=== PATIENT | female | born 1950 | race Caucasian/White ===

== ENCOUNTER 2016-11-15 09:21 | Outpatient (CLI) | payer OTHER ==
[2016-11-15 10:48] LABS: ALT (SGPT) 8 U/L (0-55); AST (SGOT) 10 U/L (5-34); Albumin 3.9 g/dL (3.4-4.8); Alkaline Phosphatase 92 U/L (40-150); Anion Gap 20 mmol/L (10-20); BUN (Urea Nitrogen) 14 mg/dL (9.8-20.1); Bilirubin, Total 0.5 mg/dL (0.2-1.2); Calc. Creatinine Clearance 0 mL/min (70-130); Calcium 9.5 mg/dL (7.8-10.44); Carbon Dioxide 23 mmol/L (23-31); Chloride 102 mmol/L (98-107); Estimated GFR-MDRD 73; Globulin 2.9 g/dL (2.4-3.5); Glucose 91 mg/dL (80-115); Potassium 4.7 mmol/L (3.5-5.1); Protein, Total 6.8 g/dL (5.8-8.1); Sodium 140 mmol/L (136-145)
[2016-11-15 17:13] LABS: Valproic Acid (Depakene) 70.2 ug/mL (50.0-100.0)
== END 2016-11-15 09:22 | disposition home or self-care (01) ==
LOC: MADLABBHPM 09:21
PROVIDERS: ATTEND Psychiatry & Neurology Psychiatry
DX: E03.9 Hypothyroidism, unspecified (principal); F31.9 Bipolar disorder, unspecified; Z79.899 Other long term (current) drug therapy
CPT/HCPCS: 36415; 80053; 80164; 84443

== ENCOUNTER 2017-02-28 10:14 | Emergency (ER) | payer MEDICARE, OTHER | END 2017-02-28 11:27 | disposition home or self-care (01) | LOC: MADERS 10:14 | DX: T63.481A Toxic effect of venom of other arthropod, accidental (unintentional), initial encounter (principal); L29.9 Pruritus, unspecified; K21.9 Gastro-esophageal reflux disease without esophagitis; J44.9 Chronic obstructive pulmonary disease, unspecified; F31.9 Bipolar disorder, unspecified; M81.0 Age-related osteoporosis without current pathological fracture; F17.210 Nicotine dependence, cigarettes, uncomplicated; Z79.82 Long term (current) use of aspirin; Z79.899 Other long term (current) drug therapy | CPT/HCPCS: 96372; J1040 ==

== ENCOUNTER 2017-04-07 09:17 | Outpatient (CLI) | payer MEDICARE, OTHER ==
[2017-04-07 09:58] LABS: ALT (SGPT) 9 U/L (8-55); AST (SGOT) 14 U/L (5-34); Albumin 3.7 g/dL (3.4-4.8); Alkaline Phosphatase 86 U/L (40-150); Anion Gap 12 mmol/L (10-20); BUN (Urea Nitrogen) 13 mg/dL (9.8-20.1); Bilirubin, Total 0.5 mg/dL (0.2-1.2); Calc. Creatinine Clearance 0 mL/min (70-130); Calcium 9.2 mg/dL (7.8-10.44); Carbon Dioxide 25 mmol/L (23-31); Chloride 104 mmol/L (98-107); Estimated GFR-MDRD 79; Globulin 3.3 g/dL (2.4-3.5); Glucose 93 mg/dL (80-115); Potassium 4.4 mmol/L (3.5-5.1); Sodium 137 mmol/L (136-145)
== END 2017-04-07 09:18 | disposition home or self-care (01) ==
LOC: MADLABBHPM 09:17
PROVIDERS: ATTEND Family Medicine
DX: E03.9 Hypothyroidism, unspecified (principal); F31.9 Bipolar disorder, unspecified
CPT/HCPCS: 36415; 80053; 80164; 84443

== ENCOUNTER 2017-06-15 12:32 | Outpatient (CLI) | payer MEDICARE, MEDICAID ==
--- NOTE | 2017-06-15 15:08 | RAD ---
CHEST TWO VIEWS: History: Lung cancer. Comparison: 11-04-13 FINDINGS: Cardiac silhouette and pulmonary vasculature are unremarkable. Mediastinum is midline. Lungs are hyp erinflated. There is no confluent airspace consolidation, pneumothorax, or pleural fluid evident. IMPRESSION: COPD. POS: [facility]
== END 2017-06-15 12:33 | disposition home or self-care (01) ==
LOC: MADRAD 12:32
PROVIDERS: ATTEND Internal Medicine Medical Oncology
DX: Z51.11 Encounter for antineoplastic chemotherapy (principal); C39.9 Malignant neoplasm of lower respiratory tract, part unspecified; C34.90 Malignant neoplasm of unspecified part of unspecified bronchus or lung; R11.2 Nausea with vomiting, unspecified
CPT/HCPCS: 71020

== ENCOUNTER 2017-06-16 11:31 | Emergency (ER) | payer MEDICARE, OTHER ==
[~2017-06-16 11:31] MED LIST: Nitroglycerin 0.4 MG TAB 1 EACH ONE; Sodium Chloride 0.9% 1,000 ML BAG ONE
[2017-06-16] MEDS ORDERED: Aspirin 325 MG TAB ONE (11:40)
[2017-06-16] MEDS ORDERED: Ondansetron HCl/PF 4 MG/2 ML Vial ONE (11:40)
[2017-06-16] MEDS ORDERED: Nitroglycerin 0.4 MG TAB 1 EACH ONE (11:41)
[2017-06-16 11:53] LABS: #Basophils 0.1 thou/uL (0.0-0.2); #Eosinphils 0.2 thou/uL (0.0-0.7); #Lymphocytes 4.9 thou/uL (1.20-3.40); #Monocytes 0.9 thou/uL (0.11-0.59); #Neutrophils 4.3 thou/uL (1.40-6.50); %Basophils 1.4 % (0.0-1.0); %Eosinophils 1.8 % (0.0-10.0); %Lymphocytes 47.2 % (21.0-51.0); %Monocytes 8.9 % (0.0-10.0); %Neutrophils 40.8 % (42.0-75.0); Mean Corpuscular HGB CONC 34.1 g/dL (32.0-36.0); Mean Corpuscular Hemoglobin 33.1 pg (27.0-31.0); Mean Corpuscular Volume 96.9 fl (81.0-99.0); Mean Platelet Volume 7.2 fL (7.4-10.4); Platelet Count 241 thou/uL (130-400); Red Blood Cell (RBC) Count 3.93 mill/uL (4.20-5.40); White Blood Cell (WBC) Count 10.4 thou/uL (4.8-10.8)
[2017-06-16 11:56] LABS: PTT 24.6 SEC (22.9-36.1); Prothrombin Time 13.1 SEC (12.0-14.7)
--- NOTE | 2017-06-16 11:56 | RAD ---
CHEST ONE VIEW HISTORY: Chest pain. COMPARISON: 01/04/2016 FINDINGS: Cardiac silhouette is magnified by projection. Pulmonary vasculature is unremarkable. Mediastinum is midline. There is no confluent air space consolidation or evidence of pneumothorax. Defibrillat or patch projects over the right upper chest. assistant infant toddler teacher leads overlie the chest. IMPRESSION: No active cardiopulmonary abnormalities are demonstrated. POS: [facility]
[2017-06-16 12:08] LABS: ALT (SGPT) 16 U/L (8-55); AST (SGOT) 15 U/L (5-34); Alkaline Phosphatase 102 U/L (40-150); Anion Gap 17 mmol/L (10-20); BUN (Urea Nitrogen) 13 mg/dL (9.8-20.1); Bilirubin, Total 0.5 mg/dL (0.2-1.2); Calc. Creatinine Clearance 0 mL/min (70-130); Calcium 9.4 mg/dL (7.8-10.44); Carbon Dioxide 19 mmol/L (23-31); Chloride 105 mmol/L (98-107); Estimated GFR-MDRD 76; Globulin 3.2 g/dL (2.4-3.5); Glucose 128 mg/dL (80-115); Potassium 3.6 mmol/L (3.5-5.1); Protein, Total 7.2 g/dL (6.0-8.3); Sodium 137 mmol/L (136-145)
[2017-06-16 12:09] LABS: CKMB 1.1 ng/mL (0-6.6); Troponin I Less than 0.010 ng/mL (< 0.028)
[2017-06-16] MEDS ORDERED: Morphine Sulfate 2 MG/ML SYRINGE ONE (12:10)
== END 2017-06-16 12:28 | disposition short-term general hospital (02) ==
LOC: MADERS 11:31
DX: I21.19 ST elevation (STEMI) myocardial infarction involving other coronary artery of inferior wall (principal); K21.9 Gastro-esophageal reflux disease without esophagitis; J44.9 Chronic obstructive pulmonary disease, unspecified; M81.0 Age-related osteoporosis without current pathological fracture; F31.9 Bipolar disorder, unspecified; F17.210 Nicotine dependence, cigarettes, uncomplicated; Z79.899 Other long term (current) drug therapy
CPT/HCPCS: 71010; 80053; 82553; 84484; 85025; 85610; 85730; 96374; 96375; J2270; J2405; J7050

== ENCOUNTER 2017-07-19 08:41 | Outpatient (CLI) | payer MEDICARE, MEDICAID ==
[2017-07-19 09:55] LABS: Anion Gap 10 mmol/L (10-20); BUN (Urea Nitrogen) 13 mg/dL (9.8-20.1); Calc. Creatinine Clearance 0 mL/min (70-130); Calcium 8.9 mg/dL (7.8-10.44); Carbon Dioxide 30 mmol/L (23-31); Chloride 100 mmol/L (98-107); Estimated GFR-MDRD 74; Glucose 87 mg/dL (80-115); Potassium 4.6 mmol/L (3.5-5.1); Sodium 135 mmol/L (136-145)
== END 2017-07-19 08:42 | disposition home or self-care (01) ==
LOC: MADLAB 08:41
PROVIDERS: ATTEND Internal Medicine Cardiovascular Disease
DX: I71.4 Abdominal aortic aneurysm, without rupture (principal); I10 Essential (primary) hypertension
CPT/HCPCS: 36415; 80048

== ENCOUNTER 2018-01-23 10:35 | Outpatient (CLI) | payer MEDICARE, OTHER | END 2018-01-23 10:36 | disposition home or self-care (01) | LOC: MADLAB 10:35 | PROVIDERS: ATTEND Radiology Diagnostic Radiology | DX: Z01.812 Encounter for preprocedural laboratory examination (principal) | CPT/HCPCS: 36415; 82565 ==

== ENCOUNTER 2018-03-23 12:26 | Emergency (ER) | payer MEDICARE, MEDICAID ==
[2018-03-23 13:00] LABS: #Basophils 0.1 thou/uL (0.0-0.2); #Eosinphils 0.1 thou/uL (0.0-0.7); #Lymphocytes 2.5 thou/uL (1.20-3.40); #Monocytes 0.6 thou/uL (0.11-0.59); #Neutrophils 3.6 thou/uL (1.40-6.50); %Lymphocytes 36.4 % (21.0-51.0); %Monocytes 9.1 % (0.0-10.0); %Neutrophils 52.5 % (42.0-75.0); Mean Corpuscular HGB CONC 33.2 g/dL (32.0-36.0); Mean Corpuscular Hemoglobin 31.5 pg (27.0-31.0); Mean Corpuscular Volume 94.7 fl (81.0-99.0); Mean Platelet Volume 7.5 fL (7.4-10.4); Platelet Count 212 thou/uL (130-400); RBC Distribution Width 12.3 % (11.5-14.5); White Blood Cell (WBC) Count 6.8 thou/uL (4.8-10.8)
--- NOTE | 2018-03-23 13:13 | CT ---
CT HEAD WITHOUT CONTRAST: Technique: Multiple axial tomograms were obtained through the head without IV enhancement. Indications: Left sided weakness. Stroke protocol. Comparison: Head CT 06-16-17 FINDINGS/IMPRESSION: Mild cortical volume loss. Moderate chronic ischemic white matter changes again noted. No hemorrhage or mass. No evidence of acute cortical infarct. Findings were relayed to Dr. Light by phone at 12:50 p.m. POS: [facility]
[2018-03-23 13:18] LABS: ALT (SGPT) 9 U/L (8-55); AST (SGOT) 11 U/L (5-34); Albumin 3.9 g/dL (3.4-4.8); Alkaline Phosphatase 75 U/L (40-150); Anion Gap 14 mmol/L (10-20); BUN (Urea Nitrogen) 11 mg/dL (9.8-20.1); Bilirubin, Total 0.4 mg/dL (0.2-1.2); CK (CPK) 140 U/L (29-168); Calc. Creatinine Clearance 0 mL/min (70-130); Calcium 9.3 mg/dL (7.8-10.44); Carbon Dioxide 23 mmol/L (23-31); Chloride 106 mmol/L (98-107); Estimated GFR-MDRD 68; Globulin 2.5 g/dL (2.4-3.5); Glucose 104 mg/dL (80-115); Potassium 4.4 mmol/L (3.5-5.1); Protein, Total 6.4 g/dL (6.0-8.3); Sodium 139 mmol/L (136-145)
[2018-03-23 13:20] LABS: CKMB 1.3 ng/mL (0-6.6); Troponin I Less than 0.010 ng/mL (< 0.028)
[2018-03-23 13:30] LABS: INR-International Normal Ratio 0.9; Prothrombin Time 12.6 SEC (12.0-14.7)
--- NOTE | 2018-03-23 13:50 | RAD ---
AP VIEW OF THE CHEST: INDICATION: History of acute CVA. COMPARISON: Prior chest radiograph dated 06/16/17. FINDINGS: There is stable mild cardiomegaly. Chronic lung changes are similar. Vascular calcifications are si milar. No definite acute osseous abnormality is evident. IMPRESSION: 1. No acute cardiopulmonary abnormality. Stable chronic lung changes. 2. Stable mild cardiomegaly without evidence of cardiac decompensation. POS: [facility]
== END 2018-03-23 14:28 | disposition short-term general hospital (02) ==
LOC: MADERS 12:26
DX: I63.9 Cerebral infarction, unspecified (principal); I71.4 Abdominal aortic aneurysm, without rupture; C34.90 Malignant neoplasm of unspecified part of unspecified bronchus or lung; E78.00 Pure hypercholesterolemia, unspecified; J44.9 Chronic obstructive pulmonary disease, unspecified; F17.210 Nicotine dependence, cigarettes, uncomplicated; F31.9 Bipolar disorder, unspecified; Z79.899 Other long term (current) drug therapy
CPT/HCPCS: 36416; 70450; 71045; 80053; 82550; 82553; 83880; 84484; 85025; 85610; 85730; 93005; 94760

== ENCOUNTER 2018-04-03 11:27 | Outpatient (CLI) | payer MEDICARE, OTHER ==
[2018-04-03 12:27] LABS: Hemoglobin 12.5 g/dL (12.0-16.0); Mean Corpuscular HGB CONC 33.3 g/dL (32.0-36.0); Mean Corpuscular Hemoglobin 31.5 pg (27.0-31.0); Mean Corpuscular Volume 94.7 fl (81.0-99.0); Mean Platelet Volume 7.9 fL (7.4-10.4); Platelet Count 189 thou/uL (130-400); RBC Distribution Width 12.2 % (11.5-14.5); Red Blood Cell (RBC) Count 3.96 mill/uL (4.20-5.40); White Blood Cell (WBC) Count 6.2 thou/uL (4.8-10.8)
[2018-04-03 12:41] LABS: ALT (SGPT) Less than 7 U/L (8-55); AST (SGOT) 12 U/L (5-34); Albumin 3.8 g/dL (3.4-4.8); Alkaline Phosphatase 74 U/L (40-150); Anion Gap 15 mmol/L (10-20); BUN (Urea Nitrogen) 16 mg/dL (9.8-20.1); Bilirubin, Direct 0.2 mg/dL (0.1-0.3); Bilirubin, Total 0.4 mg/dL (0.2-1.2); Calc. Creatinine Clearance 0 mL/min (70-130); Calcium 9.6 mg/dL (7.8-10.44); Carbon Dioxide 24 mmol/L (23-31); Cardiac Risk 3.2 (Less than 4.5); Chloride 104 mmol/L (98-107); Cholesterol 116 mg/dl (< 200 Desired); Estimated GFR-MDRD 76; Globulin 2.8 g/dL (2.4-3.5); Glucose 95 mg/dL (80-115); HDL Cholesterol 36 mg/dL (>60 Neg Risk); LDL Cholesterol, Calculated 56 mg/dL; Potassium 4.4 mmol/L (3.5-5.1); Protein, Total 6.6 g/dL (6.0-8.3); Sodium 139 mmol/L (136-145); Triglycerides 118 mg/dL (Less than 150)
== END 2018-04-03 11:28 | disposition home or self-care (01) ==
LOC: MADLAB 11:27
PROVIDERS: ATTEND Psychiatry & Neurology Psychiatry
DX: F31.9 Bipolar disorder, unspecified (principal); Z79.899 Other long term (current) drug therapy
CPT/HCPCS: 36415; 80061; 80164; 82248; 84443; 85027

== ENCOUNTER 2018-08-31 11:02 | Outpatient (CLI) | payer MEDICARE, MEDICAID ==
--- NOTE | 2018-08-31 12:35 | RAD ---
CHEST PA AND LATERAL: History: 68-year-old female with history of malignant neoplasm lower respiratory tract. Patient on chemotherap y and radiation treatments. Comparison: 03-23-18 portable chest. FINDINGS: Bilateral hyperinflation. Heart size is normal. No confluent pneumonia, overt edema, or pleural effus ion. Coronary artery stents. IMPRESSION: Hyperinflation and chronic lung changes, stable from CT fur pointer film, 05-31-18. No evidence for metastasi s. POS: [facility]
== END 2018-08-31 11:03 | disposition home or self-care (01) ==
LOC: MADRAD 11:02
PROVIDERS: ATTEND Internal Medicine Medical Oncology
DX: C34.90 Malignant neoplasm of unspecified part of unspecified bronchus or lung (principal); R91.8 Other nonspecific abnormal finding of lung field
CPT/HCPCS: 71046

== ENCOUNTER 2018-09-21 09:10 | Emergency (ER) | payer MEDICARE, MEDICAID ==
--- NOTE | 2018-09-21 10:20 | RAD ---
THREE VIEWS RIGHT HAND: History: Fall on right hand yesterday with third finger swelling. FINDINGS: Three views of the right hand shows no evidence of acute fracture or dislocation. Soft tissue swellin g of the middle finger is seen. No significant degenerative changes are seen. IMPRESSION: No evidence of acute osseous abnormality. POS: [facility]
== END 2018-09-21 10:50 | disposition home or self-care (01) ==
LOC: MADERS 09:10
DX: S63.612A Unspecified sprain of right middle finger, initial encounter (principal); S60.221A Contusion of right hand, initial encounter; J44.9 Chronic obstructive pulmonary disease, unspecified; F17.210 Nicotine dependence, cigarettes, uncomplicated; F31.9 Bipolar disorder, unspecified; Z79.899 Other long term (current) drug therapy; Z79.82 Long term (current) use of aspirin; W01.0XXA Fall on same level from slipping, tripping and stumbling without subsequent striking against object, initial encounter
CPT/HCPCS: Q4049

== ENCOUNTER 2018-12-11 13:33 | Outpatient (CLI) | payer MEDICARE, MEDICAID ==
--- NOTE | 2018-12-11 15:41 | RAD ---
PA AND LATERAL VIEWS OF THE CHEST: 12/11/18 HISTORY: Lung cancer. FINDINGS: Comparison made with exam of 08/31/18. The heart size is normal. The lungs were expanded without focal areas of consolidation, pneumothorace s or pleural effusions. No acute osseous abnormalities are seen. IMPRESSION: No acute process. Stable exam since 08/31/18. POS: [facility]
== END 2018-12-11 13:34 | disposition home or self-care (01) ==
LOC: MADRAD 13:33
PROVIDERS: ATTEND Internal Medicine Medical Oncology
DX: C34.90 Malignant neoplasm of unspecified part of unspecified bronchus or lung (principal); C39.9 Malignant neoplasm of lower respiratory tract, part unspecified
CPT/HCPCS: 71046

== ENCOUNTER 2019-12-26 10:13 | Outpatient (CLI) | payer MEDICARE, MEDICAID ==
--- NOTE | 2019-12-26 10:34 | RAD ---
Chest 2 views HISTORY: Lung cancer. Dyspnea. COMPARISON: 08/29/2019. FINDINGS: Cardiac silhouette and pulmonary vasculature are unremarkable. Mediastinum is midline with calcification over the aorta. No confluent airspace consolidation, pneumothorax, or pleural fluid. Postoperative changes of the upper abdomen evident on the lateral view. Old healed right upper lateral rib fractures. Mild compression of a midthoracic vertebral body on the lateral view is stable. IMPRESSION: No active cardiopulmonary abnormalities are demonstrated. Chronic-type findings are stabl e. Atherosclerosis.
[2019-12-26 10:45] LABS: ALT (SGPT) 11 U/L (8-55); AST (SGOT) 10 U/L (5-34); Albumin 3.6 g/dL (3.4-4.8); Alkaline Phosphatase 91 U/L (40-110); Anion Gap 13 mmol/L (10-20); BUN (Urea Nitrogen) 13 mg/dL (9.8-20.1); Bilirubin, Total 0.2 mg/dL (0.2-1.2); Calc. Creatinine Clearance 0 mL/min (70-130); Calcium 9.1 mg/dL (7.8-10.44); Carbon Dioxide 28 mmol/L (23-31); Chloride 105 mmol/L (98-107); Cholesterol 153 mg/dl (< 200 Desired); Estimated GFR-MDRD 74; Globulin 3.1 g/dL (2.4-3.5); Glucose 98 mg/dL (80-115); HDL Cholesterol 38 mg/dL (>60 Neg Risk); LDL Cholesterol, Calculated 87 mg/dL; Potassium 4.5 mmol/L (3.5-5.1); Protein, Total 6.7 g/dL (6.0-8.3); Sodium 141 mmol/L (136-145); Triglycerides 141 mg/dL (Less than 150)
== END 2019-12-26 10:14 | disposition home or self-care (01) ==
LOC: MADLAB 10:13
PROVIDERS: ATTEND Family Medicine
DX: C34.90 Malignant neoplasm of unspecified part of unspecified bronchus or lung (principal); I70.0 Atherosclerosis of aorta; E03.9 Hypothyroidism, unspecified; E78.5 Hyperlipidemia, unspecified
CPT/HCPCS: 36415; 71046; 80053; 80061; 84443

== ENCOUNTER 2020-05-20 09:21 | Outpatient (CLI) | payer MEDICARE, MEDICAID ==
--- NOTE | 2020-05-20 09:37 | RAD ---
EXAM: Chest 2 views: HISTORY: Lung cancer COMPARISON: 12/26/2019 FINDINGS: There is a normal-sized cardiomediastinal silhouette. There is no evidence of consolidation, mass, or pleural effusion. The bones are unremarkable. IMPRESSION: No evidence of acute cardiopulmonary disease
== END 2020-05-20 09:22 | disposition home or self-care (01) ==
LOC: MADRAD 09:21
PROVIDERS: ATTEND Internal Medicine Medical Oncology
DX: C34.90 Malignant neoplasm of unspecified part of unspecified bronchus or lung (principal)
CPT/HCPCS: 71046

== ENCOUNTER 2020-10-10 09:40 | Outpatient (CLI) | payer MEDICARE, OTHER ==
--- NOTE | 2020-10-10 10:45 | RAD ---
3 views left RIBS: 10/10/2020 COMPARISON: None HISTORY: Fall, anterior chest pain FINDINGS: No fracture or dislocation. No radiopaque foreign body or subcutaneous gas. IMPRESSION: No acute findings.
--- NOTE | 2020-10-10 10:46 | RAD ---
3 views right RIBS: 10/10/2020 COMPARISON: None HISTORY: Fall, rib pain FINDINGS: No fracture or dislocation. No radiopaque foreign body or subcutaneous gas. Imaging is slig htly limited by motion artifact, particularly the frontal view. IMPRESSION: No acute findings. If symptoms persist, chest CT advised.
== END 2020-10-10 09:41 | disposition home or self-care (01) ==
LOC: MADRAD 09:40
PROVIDERS: ATTEND Family Medicine
DX: R07.89 Other chest pain (principal)

== ENCOUNTER 2021-01-22 12:56 | Emergency (ER) | payer MEDICARE, OTHER ==
[2021-01-22] MEDS ORDERED: Acetaminophen 500 MG TAB ONE (14:51)
== END 2021-01-22 15:00 | disposition home or self-care (01) ==
LOC: MADERS 12:56
DX: S00.83XA Contusion of other part of head, initial encounter (principal); S80.11XA Contusion of right lower leg, initial encounter; E78.5 Hyperlipidemia, unspecified; J44.9 Chronic obstructive pulmonary disease, unspecified; I25.2 Old myocardial infarction; E78.00 Pure hypercholesterolemia, unspecified; F17.210 Nicotine dependence, cigarettes, uncomplicated; Z86.73 Personal history of transient ischemic attack (TIA), and cerebral infarction without residual deficits; Z79.82 Long term (current) use of aspirin; Z79.899 Other long term (current) drug therapy; W18.30XA Fall on same level, unspecified, initial encounter
CPT/HCPCS: 70450

== ENCOUNTER 2021-09-27 14:35 | Emergency (ER) | payer MEDICARE, OTHER, MEDICAID ==
[2021-09-27 15:44] LABS: #Basophils 0.1 thou/uL (0.0-0.2); #Eosinphils 0.1 thou/uL (0.0-0.7); #Lymphocytes 2.7 thou/uL (1.20-3.40); #Monocytes 0.5 thou/uL (0.11-0.59); #Neutrophils 4.5 thou/uL (1.40-6.50); %Basophils 0.7 % (0.0-1.0); %Lymphocytes 34.3 % (21.0-51.0); %Monocytes 6.7 % (0.0-10.0); %Neutrophils 57.3 % (42.0-75.0); Hemoglobin 13.3 g/dL (12.0-16.0); Mean Corpuscular HGB CONC 32.4 g/dL (32.0-36.0); Mean Corpuscular Hemoglobin 31.3 pg (27.0-31.0); Mean Corpuscular Volume 96.8 fL (78.0-98.0); Mean Platelet Volume 7.1 fL (7.4-10.4); Platelet Count 298 thou/uL (130-400); RBC Distribution Width 12.5 % (11.5-14.5); Red Blood Cell (RBC) Count 4.24 mill/uL (4.20-5.40); White Blood Cell (WBC) Count 7.8 thou/uL (4.8-10.8)
[2021-09-27 16:00] LABS: ALT (SGPT) 10 U/L (8-55); AST (SGOT) 16 U/L (5-34); Albumin 3.8 g/dL (3.4-4.8); Alkaline Phosphatase 100 U/L (40-110); Anion Gap 13 mmol/L (10-20); BUN (Urea Nitrogen) 24 mg/dL (9.8-20.1); Bilirubin, Total 0.4 mg/dL (0.2-1.2); Calc. Creatinine Clearance 0 mL/min (70-130); Calcium 9.4 mg/dL (7.8-10.44); Carbon Dioxide 28 mmol/L (23-31); Chloride 102 mmol/L (98-107); Globulin 3.4 g/dL (2.4-3.5); Glucose 97 mg/dL (80-115); Potassium 3.7 mmol/L (3.5-5.1); Protein, Total 7.2 g/dL (5.8-8.1); Sodium 139 mmol/L (136-145)
[2021-09-27 16:27] LABS: Bilirubin Small (Negative); Blood, Urine Negative (Negative); Glucose, Urine (Dipstick) Negative (Negative); Ketone, Urine Trace mg/dL (Negative); Leukocyte Negative (Negative); Nitrite Negative (Negative); Protein, Urine (Dipstick) Negative (Neg-Trace); pH, Urine 5.5 (5.0-9.0)
[2021-09-27 16:30] LABS: Specific Gravity, Urine 1.028 (1.002-1.036)
[2021-09-27 16:31] LABS: Clarity Clear (Clear)
== END 2021-09-27 17:03 | disposition home or self-care (01) ==
LOC: MADERS 14:35
DX: S16.1XXA Strain of muscle, fascia and tendon at neck level, initial encounter (principal); S29.012A Strain of muscle and tendon of back wall of thorax, initial encounter; S93.401A Sprain of unspecified ligament of right ankle, initial encounter; S70.01XA Contusion of right hip, initial encounter; F03.90 Unspecified dementia, unspecified severity, without behavioral disturbance, psychotic disturbance, mood disturbance, and anxiety; W19.XXXA Unspecified fall, initial encounter; E78.00 Pure hypercholesterolemia, unspecified; J44.9 Chronic obstructive pulmonary disease, unspecified; Z86.73 Personal history of transient ischemic attack (TIA), and cerebral infarction without residual deficits; F17.210 Nicotine dependence, cigarettes, uncomplicated
CPT/HCPCS: 51701; 70450; 72125; 72128; 80053; 81003; 83605; 85025

== ENCOUNTER 2021-10-19 08:25 | Emergency (ER) | payer MEDICARE, OTHER, MEDICAID ==
[2021-10-19 09:47] LABS: #Lymphocytes 1.4 thou/uL (1.20-3.40); #Monocytes 0.4 thou/uL (0.11-0.59); #Neutrophils 5.3 thou/uL (1.40-6.50); %Basophils 0.4 % (0.0-1.0); %Eosinophils 0.3 % (0.0-10.0); %Lymphocytes 19.9 % (21.0-51.0); %Neutrophils 74.4 % (42.0-75.0); Mean Corpuscular Hemoglobin 30.8 pg (27.0-31.0); Mean Corpuscular Volume 96.2 fL (78.0-98.0); Mean Platelet Volume 7.5 fL (7.4-10.4); Platelet Count 187 thou/uL (130-400); RBC Distribution Width 12.9 % (11.5-14.5); Red Blood Cell (RBC) Count 4.55 mill/uL (4.20-5.40); White Blood Cell (WBC) Count 7.1 thou/uL (4.8-10.8)
[2021-10-19 10:01] LABS: INR-International Normal Ratio 1.1; Prothrombin Time 14.3 sec (12.0-14.7)
[2021-10-19 10:04] LABS: ALT (SGPT) Less than 7 U/L (8-55); AST (SGOT) 10 U/L (5-34); Albumin 3.6 g/dL (3.4-4.8); Alkaline Phosphatase 111 U/L (40-110); Anion Gap 11 mmol/L (10-20); BUN (Urea Nitrogen) 24 mg/dL (9.8-20.1); Bilirubin, Total 0.6 mg/dL (0.2-1.2); Calc. Creatinine Clearance 0 mL/min (70-130); Calcium 9.9 mg/dL (7.8-10.44); Carbon Dioxide 29 mmol/L (23-31); Chloride 101 mmol/L (98-107); Globulin 3.8 g/dL (2.4-3.5); Glucose 94 mg/dL (80-115); Potassium 4.4 mmol/L (3.5-5.1); Protein, Total 7.4 g/dL (5.8-8.1); Sodium 137 mmol/L (136-145)
[2021-10-19] MEDS ORDERED: diphenhydrAMINE 50 MG/ML VIAL ONE (10:23)
[2021-10-19] MEDS ORDERED: methylPREDNISolone Sod Succ/PF 125 MG/2 ML VIAL ONE (10:23)
[2021-10-19] MEDS ORDERED: Famotidine In NaCl 20 mg/50 ml Premix Bag ONE (10:23)
[2021-10-19] MEDS ORDERED: Aspirin Chewable 81 MG TAB ONE (10:23)
[2021-10-19 10:25] LABS: Bilirubin Small (Negative); Blood, Urine Moderate (Negative); Glucose, Urine (Dipstick) Negative (Negative); Ketone, Urine 40 mg/dL (Negative); Leukocyte Small (Negative); Nitrite Positive (Negative); Protein, Urine (Dipstick) > or equal to 300 mg/dL (Neg-Trace); pH, Urine 6.5 (5.0-9.0)
[2021-10-19 10:26] LABS: Clarity Cloudy (Clear)
[2021-10-19 10:27] LABS: Specific Gravity, Urine 1.032 (1.002-1.036)
[2021-10-19 10:29] LABS: Bacteria/HPF 4+ HPF (None Seen); WBC/HPF Greater Than 50 HPF (0-3)
[2021-10-19] MEDS ORDERED: cefTRIAXone\\ROCEPHIN 1 GM VIAL ONE (11:13)
[2021-10-19] MEDS ORDERED: Sodium Chloride 0.9% 100 ML ONE (11:13)
[2021-10-19 12:53] LABS: SARS-CoV-2 NAA Rapid Test Not Detected (NotDetected)
== END 2021-10-20 01:00 | disposition short-term general hospital (02) ==
LOC: MADERS 08:25
DX: I63.9 Cerebral infarction, unspecified (principal); Z20.822 Contact with and (suspected) exposure to COVID-19; J44.9 Chronic obstructive pulmonary disease, unspecified; E78.00 Pure hypercholesterolemia, unspecified; F17.210 Nicotine dependence, cigarettes, uncomplicated; Z79.82 Long term (current) use of aspirin; Z79.899 Other long term (current) drug therapy
CPT/HCPCS: 36415; 51701; 70450; 80053; 81003; 81015; 84484; 85025; 85610; 93005; 96365; J0696; J1200; J2930; J3490; U0002

== ENCOUNTER 2024-11-11 14:54 | Emergency (ER) | payer MEDICARE, OTHER ==
[2024-11-11 16:09] LABS: Band 4 % (5-11); Hematocrit 37.9 % (36.0-47.0); Hemoglobin 12.2 g/dL (12.0-16.0); Hypochromia SLIGHT = 6-15 cells (100X) (0-5/hpf); Lymphocytes 35 % (21-51); MDiff Complete? YES; Mean Corpuscular HGB CONC 32.1 g/dL (32.0-36.0); Mean Corpuscular Hemoglobin 28.1 pg (27.0-31.0); Mean Corpuscular Volume 87.6 fl (78.0-98.0); Mean Platelet Volume 8.6 fL (7.4-10.4); Monocytes 11 % (0-10); Neutrophil 47 % (42-75); Platelet Adequacy Comment Appears Adequate; Platelet Count 272 10x3/uL (130-400); RBC Distribution Width 14.1 % (11.5-14.5); Red Blood Cell (RBC) Count 4.33 mill/uL (4.20-5.40); White Blood Cell (WBC) Count 10.3 10x3/uL (4.8-10.8)
[2024-11-11 16:12] LABS: ALT (SGPT) 8 U/L (8-55); AST (SGOT) 12 U/L (5-34); Albumin 3.2 g/dL (3.4-4.8); Alkaline Phosphatase 69 U/L (40-110); Anion Gap 16 mmol/L (10-20); BUN (Urea Nitrogen) 8 mg/dL (9.8-20.1); Bilirubin, Total 0.9 mg/dL (0.2-1.2); Calc. Creatinine Clearance 0 mL/min (70-130); Carbon Dioxide 27 mmol/L (23-31); Chloride 96 mmol/L (98-107); Estimated GFR 94; Glucose 100 mg/dL (83-110); Potassium 2.9 mmol/L (3.5-5.1); Protein, Total 7.2 g/dL (5.8-8.1); Sodium 136 mmol/L (136-145)
[2024-11-11 16:17] LABS: Lipase Less than 4 U/L (8-78)
[2024-11-11] MEDS ORDERED: Potassium Bicarbonate/Cit Ac 20 MEQ TAB ONE (16:28)
== END 2024-11-11 18:16 ==
LOC: MADERS 14:54
DX: S72.001A Fracture of unspecified part of neck of right femur, initial encounter for closed fracture (principal); E87.6 Hypokalemia; F17.210 Nicotine dependence, cigarettes, uncomplicated; F03.90 Unspecified dementia, unspecified severity, without behavioral disturbance, psychotic disturbance, mood disturbance, and anxiety; J44.9 Chronic obstructive pulmonary disease, unspecified; C79.9 Secondary malignant neoplasm of unspecified site; X58.XXXA Exposure to other specified factors, initial encounter; Y93.89 Activity, other specified; Y92.129 Unspecified place in nursing home as the place of occurrence of the external cause; Z86.73 Personal history of transient ischemic attack (TIA), and cerebral infarction without residual deficits
CPT/HCPCS: 36415; 70450; 74176; 80053; 83690; 85025; 93005

== ENCOUNTER 2025-09-05 20:57 | Outpatient (CLI) | payer MEDICARE, MEDICAID ==
[2025-09-05 21:02] LABS: Bacteria/HPF 4+ HPF (None Seen); Glucose, Urine (Dipstick) Negative (Negative); Leukocyte Small (Negative); Protein, Urine (Dipstick) Negative (Neg-Trace); RBC/HPF 0-3 HPF (0-3); Specific Gravity, Urine 1.025 (1.005-1.030); WBC/HPF Greater than 50 HPF (0-3)
== END 2025-09-05 20:58 | disposition home or self-care (01) ==
LOC: MADLAB 20:57
DX: N39.0 Urinary tract infection, site not specified (principal); M54.50 Low back pain, unspecified
CPT/HCPCS: 81001; 87086